=== PATIENT | male | born 1965 | race Caucasian/White ===

== ENCOUNTER 2017-04-03 22:47 | Emergency (ER) | payer BC, MEDICARE ==
[2017-04-03 23:27] LABS: ARTERIAL BLD GAS O2 SATURATION 92.9 % (94-98); ARTERIAL BLOOD GAS PCO2 53.6 mmHg (35-48); ARTERIAL BLOOD GAS pH 7.38 (7.35-7.45)
[2017-04-03 23:38] LABS: BILIRUBIN,TOTAL 0.5 mg/dL (0.0-1.0); CREATININE 1.7 mg/dL (0.6-1.3); MAGNESIUM 1.7 mg/dL (1.8-2.4); POTASSIUM 3.2 mmol/L (3.5-5.1); TOTAL PROTEIN 7.1 gm/dL (6.4-8.2)
[2017-04-03 23:45] LABS: URINE BILIRUBIN NEGATIVE (NEGATIVE); URINE BLOOD NEGATIVE (NEGATIVE); URINE GLUCOSE (UA) NORMAL (NORMAL); URINE KETONE NEGATIVE (NEGATIVE); URINE LEUKOCYTE ESTERASE NEGATIVE (NEGATIVE); URINE NITRATE NEGATIVE (NEGATIVE); URINE PROTEIN 2+ (NEGATIVE)
[2017-04-04 00:05] LABS: HEMATOCRIT 43.4 % (40-51); HEMOGLOBIN 14.3 g/dL (13.7-17.5); MEAN CORPUSCULAR HEMOGLOBIN 30.2 pg (27.0-33.0); MEAN CORPUSCULAR HGB CONC 32.9 g/dL (32.0-36.0); MEAN CORPUSCULAR VOLUME 91.8 fL (79-92); PLATELET COUNT 172 x10_3/uL (163-337); RED BLOOD COUNT 4.73 x10_6/uL (4.6-6.1); WHITE BLOOD COUNT 7.2 x10_3/uL (4.2-9.1)
== END 2017-04-04 02:00 | disposition home or self-care (01) ==
LOC: ER 22:47
PROVIDERS: Emergency Medicine
DX: R41.82 Altered mental status, unspecified (principal); E87.6 Hypokalemia; R53.83 Other fatigue; G47.30 Sleep apnea, unspecified; F31.9 Bipolar disorder, unspecified; Z99.81 Dependence on supplemental oxygen; Z79.899 Other long term (current) drug therapy
CPT/HCPCS: 36415; 36600; 51702; 70450; 71010; 80053; 80307; 81003; 82550; 82553; 82803; 83735; 85025; 93005; 96360; 99070; 99284-25